=== PATIENT | female | born 1960 | race Hispanic/Latino ===

== ENCOUNTER 2017-08-13 08:21 | Inpatient (IN) | payer BC ==
[2017-08-13 09:17] LABS: #Lymphocytes 1.7 thou/uL (1.20-3.40); #Monocytes 0.9 thou/uL (0.11-0.59); #Neutrophils 10.1 thou/uL (1.40-6.50); %Basophils 0.1 % (0.0-1.0); %Eosinophils 0.1 % (0.0-10.0); %Lymphocytes 12.9 % (21.0-51.0); %Monocytes 7.4 % (0.0-10.0); Hematocrit 38.1 % (36.0-47.0); Mean Platelet Volume 6.5 fL (7.4-10.4); Red Blood Cell (RBC) Count 4.14 mill/uL (4.20-5.40); White Blood Cell (WBC) Count 12.7 thou/uL (4.8-10.8)
[2017-08-13 09:42] LABS: Bilirubin Negative (Negative); Blood, Urine Negative (Negative); Glucose, Urine (Dipstick) Negative (Negative); Ketone, Urine Negative (Negative); Nitrite Negative (Negative); Protein, Urine (Dipstick) 100 mg/dL (Neg-Trace); Urobilinogen 0.2 mg/dL (0.2-1.0)
[2017-08-13 09:43] LABS: Prothrombin Time 14.3 SEC (12.0-14.7)
[2017-08-13 09:44] LABS: PTT 35.6 SEC (22.9-36.1)
[2017-08-13] MEDS ORDERED: Gabapentin 300 MG CAP PO SCH (09:45)
[2017-08-13 09:48] LABS: Bacteria/HPF 4+ HPF (None Seen); Hyaline Casts/LPF 0-3 HYALINE CAST LPF (0-3 Hyaline); Squamous Epithelial None Seen HPF (0-3)
--- NOTE | 2017-08-13 10:00 | CT ---
HEAD CT WITHOUT CONTRAST: DATE: 08/13/17. COMPARISON: 12/09/16. HISTORY: Weakness of bilateral lower extremities, numbness and tingling of bilateral legs. TECHNIQUE: Serial axial CT imaging is obtained at 5 mm intervals from vertex through the skull base without cont rast. FINDINGS: There is an area of hypodensity within the posterior parietooccipital lobe on the left, which correla brinda with an area of prior infarction on the 12/09/16 brain MRI. There is encephalomalacia within the periventricular and deep white matter near the frontal horn of the left lateral ventricle, also corre lating with an area of prior infarction seen on 12/09/16 MRI. No intracranial hemorrhage, midline shift, or mass effect is seen.. There are numerous foci of intracranial calcification bilaterally suggesting prior cysticercosis infe ction. Imaged paranasal sinuses/mastoid air cells are well aerated. No displaced calvarial fracture. IMPRESSION: No acute findings - no intracranial hemorrhage. If there is clinical concern for acute infarction, b rain MRI is advised. Evidence of prior cysticercosis infection noted. POS: [facility]
--- NOTE | 2017-08-13 10:00 | RAD ---
ONE VIEW CHEST: COMPARISON: 02/21/17. HISTORY: Weakness. FINDINGS: Normal cardiac silhouette. The pulmonary vessels and hilum are normal. No consolidation or mass. N o pneumothorax or osseous abnormalities. IMPRESSION: No acute cardiopulmonary process. POS: [facility]
[2017-08-13 10:07] LABS: Anion Gap 12 mmol/L (10-20); BUN (Urea Nitrogen) 33 mg/dL (9.8-20.1); Bilirubin, Total 0.6 mg/dL (0.2-1.2); Calc. Creatinine Clearance 0 mL/min (70-130); Calcium 9.9 mg/dL (7.8-10.44); Carbon Dioxide 26 mmol/L (22-29); Chloride 98 mmol/L (98-107); Estimated GFR-MDRD 41
[2017-08-13 10:08] LABS: ALT (SGPT) 22 U/L (8-55); AST (SGOT) 19 U/L (5-34); Alkaline Phosphatase 77 U/L (40-150); CK (CPK) 184 U/L (29-168); Globulin 3.3 g/dL (2.4-3.5)
[2017-08-13 10:09] LABS: Troponin I 0.028 ng/mL (< 0.028)
[2017-08-13] MEDS ORDERED: hydrALAZINE 20 MG/ML VIAL SLOW IVP PRN (11:43)
[2017-08-13] MEDS ORDERED: Dextrose 5% in Water 1,000 ML IV PRN (11:57)
[2017-08-13] MEDS ORDERED: Dextrose 50% Abboject 50 ML SYRINGE SLOW IVP PRN (11:57)
[2017-08-13] MEDS ORDERED: cefTRIAXone Sodium 1 MG in Syringe 0 ML IVPB SCH (12:00)
[2017-08-13] MEDS: Sodium Chloride 0.9% 1,000 ML IV SCH ×2 (13:00→20:58)
[2017-08-13 13:39] VITALS: BMI 35.1
[2017-08-13] MEDS ORDERED: Ondansetron ODT 4 MG TAB PO PRN (13:40)
[2017-08-13] MEDS ORDERED: Ondansetron HCl/PF 4 MG/2 ML Vial IVP PRN (13:40)
[2017-08-13] MEDS ORDERED: Acetaminophen 325 MG TAB PO PRN (13:40)
[2017-08-13] MEDS: cefTRIAXone\\ROCEPHIN 1 GM, Syringe 0.4 ML in Sterile Water 9.6 ML SLOW IVP SCH (13:48)
--- NOTE | 2017-08-13 15:41 | MRI ---
BRAIN MRI WITHOUT CONTRAST 08/13/17 COMPARISON: 12/09/16. HISTORY: Evaluate for acute infarction. FINDINGS: There is no focus of restricted diffusion seen to suggest the presence of an acute infarction. There are a few foci of mildly increased signal intensity on the diffusion weighted imaging in the region o f the periventricular white matter near the anterior aspect of the body of the left lateral ventricle , in an area of infarction seen on the 12/09/16 exam, suggesting T2 shine through. In the area of prior infarction in the region of the left basal ganglia and left periventricular whit e matter there is increased T2 and FLAIR signal. Motion artifact limits detailed assessment of the axial FLAIR and T2 weighted imaging. There is a focus of encephalomalacia within the occipital lobe on the left suggesting an area of prio r infarction. There is a partially empty sella turcica present. There is mucosal thickening involving the sphenoid sinuses and ethmoid air cells. There are a few opa cified mastoid air cells on the right. Arterial flow voids at the axial level of the skull base appear grossly unremarkable on the T2 weight ed imaging, detailed assessment limited secondary to motion. Motion limited assessment of the gradient echo imaging demonstrates no obvious hemorrhage. IMPRESSION: Motion limited exam demonstrates no definite evidence for acute infarction. Chronic findings as above . POS: [facility]
[2017-08-13] MEDS: Hydroxychloroquine Sulfate 200 MG TAB PO SCH (16:46)
[2017-08-13] MEDS ORDERED: Metoprolol Tartrate 5 MG/5 ML VIAL IVP PRN (18:28)
[2017-08-13] MEDS ORDERED: Sodium Chloride 0.9% 500 ML IVPB SCH (18:30)
[2017-08-13] MEDS ORDERED: Ibuprofen 600 MG TAB PO PRN (18:45)
[2017-08-13] MEDS ORDERED: Ibuprofen 600 MG TAB PO SCH (19:00)
[2017-08-13] MEDS: Gabapentin 300 MG CAP PO SCH (20:57)
[2017-08-13] MEDS: ALPRAZolam 0.25 MG TAB PO SCH (20:57)
[2017-08-13] MEDS ORDERED: Simvastatin 20 MG TAB PO SCH (21:00)
[2017-08-13] MEDS ORDERED: Insulin Detemir 100 UNITS/ML 15 UNITS in Pre-Filled Syringe 1 EACH SC SCH (21:30)
--- NOTE | 2017-08-13 21:55 | CON ---
DATE OF CONSULTATION: 08/13/2017 REFERRING PHYSICIAN: Hospitalist service. HISTORY OF PRESENT ILLNESS: Ms. Leong is a patient of Dr. Diehl who has been followed for post-stroke movement disorder issues. She has been on Sinemet now for the last 2 months. Family reports that i t did not really seem to make a difference of anything and she was not doing any better. She started having more difficulty walking which necessitated her admission. Her lab work revealed evidence of urinary tract infection. Her MRI of the brain shows some chronic areas of ischemia involving the lef t periventricular frontal region and right midbrain mesially. No acute changes were found. The yulisa ent has been started on ceftazidime. PHYSICAL EXAMINATION: GENERAL: She is awake, but Nepalese speaking only. NEUROLOGIC: She had a little difficulty maintaining attention and following commands appropriately. She had full eye movement but seemed to have a right gaze preference. She had some rhythmic movemen t in the left upper extremity and had difficulty using it appropriately. She could move both legs ag ainst gravity in a fairly symmetric fashion. Plantar responses were downgoing. Gait was not tested. I do not see any evidence of acute stroke. The urinary tract infection may have aggravated her chron ic neurologic issues. The family is convinced the Sinemet has not been helpful, and possibly even ag gravated her condition. I will go ahead and discontinue this.
--- NOTE | 2017-08-13 22:50 | HP ---
DATE OF ADMISSION: 08/13/2017 ADMITTING PHYSICIAN: Maycol Garcia M.D. PRIMARY CARE PHYSICIAN: Viviana Corcoran M.D. CHIEF COMPLAINT: Weakness, dizziness. HISTORY OF PRESENT ILLNESS: The patient is a 57-year-old female with a history of prior CVA as well as diabetes and hypertension. The patient lives at home with her family and they noticed that she wa s unable to get out of the bed this morning. The patient is typically able to walk and she was not a ble to do that at home. They also report that she has been suffering with nausea, diarrhea, and dysu nasreen. They deny fevers, cough. The patient has had some neurological complaints and has been followe d by Dr. Diehl in the Neurology clinic. She was started on Sinemet and other medications approximatel y 1 month ago and the family feels that her motor abilities have declined since then. REVIEW OF SYSTEMS: The following complete review of systems was negative, unless otherwise mentioned in the HPI or below: Constitutional: Weight loss or gain, sense of well-being, ability to conduct usual activities, exerc ise tolerance. Skin/Breast: Rash, itching, changes in hair growth or loss, nail changes, breast lumps, tenderness, swelling, nipple discharge. Eyes: Vision, double vision, tearing, blind spots, pain. ENT/Mouth: Headaches (location, time of onset, duration, precipitating factors), vertigo, lightheade dness, injury. Vision, double vision, tearing, blind spots, pain, nose bleeding, colds, obstruction, discharge, dental difficulties, gingival bleeding, dentures, neck stiffness, pain, tenderness, masses in thyroid or other areas. Cardiovascular: Precordial pain, substernal distress, palpitations, syncope, dyspnea on exertion, or thopnea, nocturnal paroxysmal dyspnea, edema, cyanosis, hypertension, heart murmurs, varicosities, ph lebitis, claudication. Respiratory: Pain, shortness of breath, wheezing, stridor, cough, hemoptysis, fever or night sweats. Gastrointestinal: Poor appetite, dysphagia, indigestion, abdominal pain, heartburn, eructation, naus ea, vomiting, hematemesis, jaundice, constipation, or diarrhea, abnormal stools (kathleen-colored, tarry, bloody, greasy, foul smelling), flatulence, hemorrhoids, recent changes in bowel habits. Genitourinary: Urgency, frequency, dysuria, nocturia, hematuria, polyuria, oliguria, unusual (or mars nge in) color of urine, stones, hesitancy, change in size of stream, dribbling, acute retention or in continence, libido, potency. Musculoskeletal: Pain, swelling, redness or heat of muscles or joints, limitation, of motion, muscul ar weakness, atrophy, cramps. Neurologic/Psychiatric: Convulsions, paralyses, tremor, incoordination, paresthesias, difficulties w ith memory of speech, sensory or motor disturbances, or muscular coordination (ataxia, tremor), emoti onal problems, anxiety, depression, previous psychiatric care, unusual perceptions, hallucinations. Allergy/Immunologic: Skin rash, anemia, bleeding tendency, polydipsia, polyuria, intolerance to heat or cold. PAST MEDICAL HISTORY: Significant for lupus, diabetes type 2 uncontrolled, history of hypertension, right-sided CVA in 11/2016. PSYCHIATRIC HISTORY: None. SOCIAL HISTORY: Denies alcohol, drugs, or tobacco. She lives at home with her family. HOME MEDICATIONS: Zoloft 25 mg q. day, gabapentin 600 mg t.i.d., metformin 1000 mg b.i.d., lisinopri l 20 mg q. day, Lasix 20 mg q. day, prednisone 5 mg q. day, Xanax 0.25 mg b.i.d., hydroxychloroquine 200 mg b.i.d., hydralazine 100 mg t.i.d., simvastatin 20 mg q. day, Catapres 0.1 mg q. day, hydrochlo rothiazide 12.5 mg q. day, multivitamin, carbidopa/levodopa once a day, and pramipexole 0.25 mg once a day at bedtime. KNOWN DRUG ALLERGIES: AMLODIPINE causes a rash. PHYSICAL EXAMINATION: VITAL SIGNS: Pulse of 89, respirations 20, BP 132/93, temperature 98.5, satting 95% on room air. GENERAL: She is somewhat lethargic, alert, and oriented to person, place, and time. HEAD: Normocephalic, atraumatic. EYES: PERRL. Extraocular muscles are intact. No apparent nystagmus. ENT: Mouth exam normal. Mucous membranes are moist. NECK: Supple, full range of motion. No meningeal signs. RESPIRATORY: Clear to auscultation bilaterally. CARDIAC: Sinus tachycardia. ABDOMEN: Obese, nontender, nondistended. EXTREMITIES: No clubbing, cyanosis, or edema. NEUROLOGIC: No focal deficits, although there does appear to be a weakness in the bilateral lower ex tremities. LABORATORY DATA AND IMAGING: CBC shows a white count of 12.7, hemoglobin 12.2, hematocrit 38.1, plat elets 224. Coagulation studies: PT 14.3, INR 1.1, PTT 35.6. CMP shows a sodium of 132, potassium 4 .3, chloride 98, CO2 of 26, BUN 33, creatinine 1.33, glucose 143, calcium 9.9, AST 19, ALT 22, alkali ne phosphatase 77, creatinine kinase 184, CK-MB 2.1, troponin I of 0.028, albumin 3.7. Urinalysis; y ellow, cloudy, urine protein 100, urine glucose negative, urine ketones negative, urine nitrites nega tive, urine leukocyte esterase small amount, white blood cells greater than 50, and urine bacteria 4+ . Brain MRI shows no acute ischemic event. Chronic findings were present consistent with prior CVA. Brain CT, once again, no acute findings, no intracranial hemorrhage, evidence of prior cysticercosi s infection is noted. Chest x-ray shows no acute cardiopulmonary process. ASSESSMENT: 1. Urinary tract infection. 2. Acute kidney injury. 3. Leg weakness. PLAN: The patient will be admitted to stroke uriarte. She will be seen and assessed by the stroke team including Neurology. The patient will be treated empirically with cephalosporin for urinary tract i nfection. We will place her on a sliding scale insulin regimen and check Accu-Cheks q.a.c. and at be dtime. We will provide other supportive measures as needed. VTE prophylaxis will be done with compr ession stockings and SCDs.
[2017-08-14] MEDS: Sodium Chloride 0.9% 1,000 ML IV SCH ×3 (00:50→11:30)
[2017-08-14 04:03] LABS: #Basophils 0.1 thou/uL (0.0-0.2); #Lymphocytes 1.5 thou/uL (1.20-3.40); #Monocytes 0.7 thou/uL (0.11-0.59); %Basophils 0.5 % (0.0-1.0); %Eosinophils 0.2 % (0.0-10.0); %Lymphocytes 11.5 % (21.0-51.0); %Monocytes 5.3 % (0.0-10.0); Hematocrit 41.6 % (36.0-47.0); Mean Platelet Volume 6.6 fL (7.4-10.4); Red Blood Cell (RBC) Count 4.45 mill/uL (4.20-5.40); White Blood Cell (WBC) Count 13.4 thou/uL (4.8-10.8)
[2017-08-14 04:21] LABS: Anion Gap 16 mmol/L (10-20); BUN (Urea Nitrogen) 33 mg/dL (9.8-20.1); Calc. Creatinine Clearance 93 mL/min (70-130); Calcium 9.8 mg/dL (7.8-10.44); Carbon Dioxide 20 mmol/L (22-29); Chloride 104 mmol/L (98-107); Estimated GFR-MDRD 59
--- NOTE | 2017-08-14 08:37 | RAD ---
PORTABLE CHEST: HISTORY: Chest pain for 5 hours. COMPARISON: Prior day's study. FINDINGS: Heart size is borderline. There are atherosclerotic changes of the aorta. The lungs are clear of in filtrates. IMPRESSION: Borderline heart size. POS: [facility]
--- NOTE | 2017-08-14 08:43 | CT ---
FINAL REPORT EMERGENCY AFTER HOURS CT ANGIO CHEST PERFORMED WITH INTRAVENOUS CONTRAST ENHANCEMENT WITH 3D RECONSTR UCTIONS: Date: 08/14/17 HISTORY: Shortness of breath. FINDINGS: The lungs are clear of any focal infiltrative process. No pulmonary nodules are identified. No pleura l effusions. The thoracic aorta is normal in caliber. There is fair pulmonary artery opacification. I see no signs of central emboli. Small peripheral embo li cannot be definitely excluded on the basis of this exam. Visualized liver parenchyma shows no focal findings. Small hiatal hernia is present. IMPRESSION: No CT evidence for pulmonary embolus. POS: [facility]
[2017-08-14] MEDS: predniSONE 20 MG TAB PO SCH (08:58)
[2017-08-14] MEDS: Hydroxychloroquine Sulfate 200 MG TAB PO SCH ×2 (08:58→17:20)
[2017-08-14] MEDS: Gabapentin 300 MG CAP PO SCH ×3 (08:58→21:11)
[2017-08-14] MEDS: cloNIDine 0.1 MG TAB PO SCH (08:59)
[2017-08-14] MEDS: ALPRAZolam 0.25 MG TAB PO SCH ×2 (09:00→21:11)
--- NOTE | 2017-08-14 09:46 | PQF ---
DATE: 08-14-17 ATTN: DR. SHADY EASON Please exercise your independent, professional judgment in responding to the clarification form. Clinical indicators are provided on the bottom of this form for your review Please check appropriate box(s): [ ] Hemiplegia d/t CVA [ ] Paraplegia [ ] Weakness (please specify anatomical area) d/t CVA Specify: [ ] Non dominant side [ ] Dominant side [ x ] Other diagnosis weakness due to UTI and sepsis. No CVA, ruled out ___ [ ] Unable to determine In addition, please specify: Present on Admission (POA): [ ] Yes [ ] No [ ] Unable to determine CLINICAL INDICATORS - SIGNS / SYMPTOMS / LABS ER DOCUMENTATION: HX OF CVA WITH L SIDED DEFICIT H&P: R SIDED CVA IN , NO FOCAL DEFICITS, ALTHOUGH THERE APPEARS TO BE A WEAKNESS IN THE BILATERAL LOWER EXTREMITIES RISK FACTORS: ER DOCUMENTATION: HX OF CVA WITH L SIDED DEFICIT TREATMENT: CONSULT DR. HUANG-NEUROLOGY NURSES ASSESSMENT 08-13-17: WEAK, STANDBY ASSISTANCE, 1 PERSON ASSIST (This form is maintained as a part of the permanent medical record) 2014 [employer]. All Rights Reserved [email or web address] Office: [phone] [facility] CENTERGustabo
[2017-08-14] MEDS: Insulin Regular 300 UNITS/3 ML VIAL SC PRN ×2 (11:28→17:18)
--- NOTE | 2017-08-14 11:47 | PDOC.PN ---
- Subjective Encounter Start Date: 08/14/17 Encounter Start Time: 11:00 Pt seen and examined on rounds. Chart reviewed in its entirety. This is my first visit with this patient. Febrile to 101.0 this morning, down form tmax of 103.1 prior to admit/. No sweats or chills,no rigors. Pt up woth PT earlier, awaiting their notes. No N/ C/D/C. no CP or SOB. feels weak. Sleeping soundly, family at bedside 10 point RSO performed and neg for all systems except as above - Objective Resuscitation Status: FULL MAR Reviewed: Yes Vital Signs & Weight: Vital Signs (12 hours) Temp Pulse Resp BP BP Pulse Ox 08/14/17 11:20 98.3 F 63 18 125/69 97 08/14/17 08:59 128/71 08/14/17 08:50 101 F H 93 20 97 08/14/17 07:20 101 F H 93 20 146/70 H 97 08/14/17 05:33 104 H 179/79 H 08/14/17 04:00 96.8 F L 99 20 191/89 H 93 L 08/14/17 03:57 110 H 20 97 08/14/17 03:31 91 L 08/14/17 03:23 118 H 24 H 208/108 H 91 L 08/14/17 00:00 97.3 F L 63 16 120/72 97 I&O: 08/13/17 08/14/17 08/15/17 06:59 06:59 06:59 Intake Total 2240 Balance 2240 Result Diagrams: 08/14/17 03:54 08/14/17 03:54 Additional Labs: Accuchecks 08/14/17 08/14/17 08/13/17 11:04 06:03 21:11 POC Glucose 315 H 154 H 170 H 08/13/17 08/13/17 18:38 16:34 POC Glucose 133 H 154 H Radiology Reviewed by me: Yes EKG Reviewed by me: Yes Phys Exam - Physical Examination Constitutional: NAD HEENT: PERRLA, moist MMs, sclera anicteric, oral pharynx no lesions Neck: no nodes, no JVD, supple, full ROM Respiratory: no wheezing, no rales, no rhonchi, clear to auscultation bilateral Cardiovascular: RRR, no significant murmur, no rub Gastrointestinal: soft, non-tender, no distention, positive bowel sounds Musculoskeletal: no edema, pulses present Neurological: non-focal, normal sensation, moves all 4 limbs 4/5 strength globally Lymphatic: no nodes Psychiatric: A&O x 3 Skin: no rash, normal turgor, cap refill <2 seconds Dx/Plan (1) UTI (urinary tract infection) with pyuria Code(s): N39.0 - URINARY TRACT INFECTION, SITE NOT SPECIFIED Status: Acute Comment: UCx pending/. followup on results, [facility] with IV abx, sepsis reolving. strength better, MS normal (2) Sepsis Code(s): A41.9 - SEPSIS, UNSPECIFIED ORGANISM Status: Acute Qualifiers: Sepsis type: sepsis due to unspecified organism Qualified Code(s): A41.9 - Sepsis, unspecified organism Comment: resolving, [facility] (3) DM type 2 (diabetes mellitus, type 2) Status: Chronic Qualifiers: Diabetes mellitus complication status: with neurologic complications Diabetes mellitus complication detail: with unspecified neuropathy Diabetes mellitus long-term insulin use: with terminal makeup operator use Comment: resuming levemir. SSi for correction. Metformin on hold (4) H/O: CVA (cerebrovascular accident) Code(s): Z86.73 - PRSNL HX OF TIA (TIA), AND CEREB INFRC W/O RESID DEFICITS Status: Chronic (5) HTN (hypertension) Code(s): I10 - ESSENTIAL (PRIMARY) HYPERTENSION Status: Chronic Qualifiers: Hypertension type: essential hypertension Qualified Code(s): I10 - Essential (primary) hypertension Comment: restart hydralazine. holding licinopril and HCTZ due to sepsis (6) SLE (systemic lupus erythematosus) Code(s): M32.9 - SYSTEMIC LUPUS ERYTHEMATOSUS, UNSPECIFIED Status: Chronic Qualifiers: Systemic lupus erythematosus type: unspecified Systemic lupus erythematosus organ involvement: unspecified Qualified Code(s): M32.9 - Systemic lupus erythematosus, unspecified - Plan cont current plan of care, plan discussed w/ family, continue antibiotics, PT/OT , out of bed/ambulate * .
[2017-08-14] MEDS: Pramipexole Di-HCl 0.25 MG TAB PO SCH ×2 (15:30→21:14)
[2017-08-14] MEDS: hydrALAZINE 25 MG TAB PO SCH ×2 (15:30→21:11)
[2017-08-14] MEDS: cefTRIAXone\\ROCEPHIN 1 GM, Syringe 0.4 ML in Sterile Water 9.6 ML SLOW IVP SCH (15:34)
[2017-08-14] MEDS ORDERED: ISOVUE-370 76%-LOCM 1 ML ONE (17:20)
[2017-08-14] MEDS ORDERED: Insulin Detemir 100 UNITS/ML 15 UNITS in Pre-Filled Syringe 1 EACH SC SCH (21:00)
[2017-08-14] MEDS ORDERED: Non-Formulary Item 1 EACH (Levemir Flexpen [Levemir Flexpen] 15 UNIT) SC SCH (21:00)
[2017-08-14] MEDS: Insulin Detemir 100 UNITS/ML 15 UNITS in Pre-Filled Syringe SC SCH (21:16)
[2017-08-15] MEDS: Sodium Chloride 0.9% 1,000 ML IV SCH ×3 (03:34→16:05)
[2017-08-15 05:17] LABS: #Lymphocytes 0.9 thou/uL (1.20-3.40); #Monocytes 0.6 thou/uL (0.11-0.59); #Neutrophils 5.8 thou/uL (1.40-6.50); %Basophils 0.1 % (0.0-1.0); %Eosinophils 0.4 % (0.0-10.0); %Lymphocytes 12.8 % (21.0-51.0); Hematocrit 31.3 % (36.0-47.0); Mean Platelet Volume 6.8 fL (7.4-10.4); Red Blood Cell (RBC) Count 3.38 mill/uL (4.20-5.40); White Blood Cell (WBC) Count 7.4 thou/uL (4.8-10.8)
[2017-08-15 05:25] LABS: Anion Gap 10 mmol/L (10-20); BUN (Urea Nitrogen) 21 mg/dL (9.8-20.1); Calc. Creatinine Clearance 145 mL/min (70-130); Calcium 8.9 mg/dL (7.8-10.44); Carbon Dioxide 23 mmol/L (22-29); Chloride 109 mmol/L (98-107); Estimated GFR-MDRD Greater than 90
[2017-08-15] MEDS: Primidone 50 MG TAB PO SCH (09:07)
[2017-08-15] MEDS: Pramipexole Di-HCl 0.25 MG TAB PO SCH ×3 (09:08→22:02)
[2017-08-15] MEDS: predniSONE 20 MG TAB PO SCH (09:08)
[2017-08-15] MEDS: cloNIDine 0.1 MG TAB PO SCH (09:08)
[2017-08-15] MEDS: ALPRAZolam 0.25 MG TAB PO SCH ×2 (09:08→22:01)
[2017-08-15] MEDS: Hydroxychloroquine Sulfate 200 MG TAB PO SCH ×2 (09:08→16:06)
[2017-08-15] MEDS: Gabapentin 300 MG CAP PO SCH ×3 (09:09→22:01)
[2017-08-15] MEDS: hydrALAZINE 25 MG TAB PO SCH ×3 (09:09→22:01)
[2017-08-15] MEDS: cefTRIAXone\\ROCEPHIN 1 GM, Syringe 0.4 ML in Sterile Water 9.6 ML SLOW IVP SCH (13:23)
[2017-08-15 15:37] LABS: Bilirubin Negative (Negative); Blood, Urine Negative (Negative); Glucose, Urine (Dipstick) 250 mg/dL (Negative); Ketone, Urine Negative (Negative); Nitrite Negative (Negative); Protein, Urine (Dipstick) Trace mg/dL (Neg-Trace)
[2017-08-15 15:40] LABS: Bacteria/HPF None Seen HPF (None Seen); Hyaline Casts/LPF 0-3 HYALINE CAST LPF (0-3 Hyaline); Squamous Epithelial 0-3 HPF (0-3)
--- NOTE | 2017-08-15 16:23 | PDOC.PN ---
- Subjective Encounter Start Date: 08/15/17 Encounter Start Time: 16:21 Patient seen and examined. No new complaints. No overnight events - Objective MAR Reviewed: Yes Vital Signs & Weight: Vital Signs (12 hours) Temp Pulse Pulse Pulse Resp BP BP 08/15/17 16:06 70 186/91 H 08/15/17 15:36 99.0 F 70 16 08/15/17 11:32 99.7 F H 88 16 08/15/17 09:09 89 186/81 H 08/15/17 09:08 186/81 H 08/15/17 08:21 113 H 101 H 167/77 H 08/15/17 08:00 98.9 F 89 20 08/15/17 07:48 98.9 F 89 20 08/15/17 05:37 98.0 F 72 18 BP BP Pulse Ox 08/15/17 16:06 08/15/17 15:36 186/91 H 97 08/15/17 11:32 148/63 H 97 08/15/17 09:09 08/15/17 09:08 08/15/17 08:21 172/70 H 08/15/17 08:00 96 08/15/17 07:48 186/81 H 96 08/15/17 05:37 154/68 H 99 I&O: 08/14/17 08/15/17 08/16/17 06:59 06:59 06:59 Intake Total 2240 836 Balance 2240 836 Result Diagrams: 08/15/17 04:44 08/15/17 04:44 Additional Labs: Accuchecks 08/15/17 08/15/17 08/14/17 10:45 04:44 21:08 POC Glucose 219 H 74 113 H 08/14/17 17:04 POC Glucose 211 H Phys Exam - Physical Examination Constitutional: NAD HEENT: PERRLA Neck: no JVD Respiratory: no rales Cardiovascular: no significant murmur Gastrointestinal: non-tender Musculoskeletal: pulses present Neurological: normal sensation letft leg weaker than left Psychiatric: A&O x 3 Dx/Plan (1) UTI (urinary tract infection) with pyuria Code(s): N39.0 - URINARY TRACT INFECTION, SITE NOT SPECIFIED Status: Acute Comment: UCx pending/. followup on results, [facility] with IV abx, sepsis reolving. strength better, MS normal (2) DM type 2 (diabetes mellitus, type 2) Status: Chronic Qualifiers: Diabetes mellitus complication status: with neurologic complications Diabetes mellitus complication detail: with unspecified neuropathy Diabetes mellitus marine oil terminal superintendent insulin use: with marine oil terminal superintendent use Comment: resuming levemir. SSi for correction. Metformin on hold (3) H/O: CVA (cerebrovascular accident) Code(s): Z86.73 - PRSNL HX OF TIA (TIA), AND CEREB INFRC W/O RESID DEFICITS Status: Chronic (4) HTN (hypertension) Code(s): I10 - ESSENTIAL (PRIMARY) HYPERTENSION Status: Chronic Qualifiers: Hypertension type: essential hypertension Qualified Code(s): I10 - Essential (primary) hypertension Comment: restart hydralazine. holding licinopril and HCTZ due to sepsis (5) SLE (systemic lupus erythematosus) Code(s): M32.9 - SYSTEMIC LUPUS ERYTHEMATOSUS, UNSPECIFIED Status: Chronic Qualifiers: Systemic lupus erythematosus type: unspecified Systemic lupus erythematosus organ involvement: unspecified Qualified Code(s): M32.9 - Systemic lupus erythematosus, unspecified - Plan * .
[2017-08-15] MEDS: Insulin Detemir 100 UNITS/ML 15 UNITS in Pre-Filled Syringe SC SCH (22:02)
[2017-08-16] MEDS: Sodium Chloride 0.9% 1,000 ML IV SCH ×2 (01:52→01:53)
[2017-08-16 05:57] LABS: Anion Gap 9 mmol/L (10-20); BUN (Urea Nitrogen) 14 mg/dL (9.8-20.1); Calc. Creatinine Clearance 156 mL/min (70-130); Calcium 8.8 mg/dL (7.8-10.44); Carbon Dioxide 24 mmol/L (22-29); Chloride 109 mmol/L (98-107); Estimated GFR-MDRD Greater than 90; Magnesium 1.5 mg/dL (1.6-2.6)
[2017-08-16] MEDS: Primidone 50 MG TAB PO SCH (09:13)
[2017-08-16] MEDS: Hydroxychloroquine Sulfate 200 MG TAB PO SCH ×2 (09:13→17:12)
[2017-08-16] MEDS: cloNIDine 0.1 MG TAB PO SCH (09:13)
[2017-08-16] MEDS: Pramipexole Di-HCl 0.25 MG TAB PO SCH ×3 (09:13→21:35)
[2017-08-16] MEDS: hydrALAZINE 25 MG TAB PO SCH ×3 (09:13→21:34)
[2017-08-16] MEDS: ALPRAZolam 0.25 MG TAB PO SCH ×2 (09:14→21:34)
[2017-08-16] MEDS: Gabapentin 300 MG CAP PO SCH ×3 (09:14→21:34)
[2017-08-16] MEDS: predniSONE 20 MG TAB PO SCH (09:14)
[2017-08-16] MEDS: Insulin Regular 300 UNITS/3 ML VIAL SC PRN ×2 (11:18→17:12)
[2017-08-16] MEDS: cefTRIAXone\\ROCEPHIN 1 GM, Syringe 0.4 ML in Sterile Water 9.6 ML SLOW IVP SCH (12:34)
--- NOTE | 2017-08-16 16:05 | PDOC.PN ---
- Subjective Encounter Start Date: 08/16/17 Encounter Start Time: 16:03 Patient seen and examined. No new complaints. No overnight events - Objective MAR Reviewed: Yes Vital Signs & Weight: Vital Signs (12 hours) Temp Pulse Resp BP Pulse Ox 08/16/17 12:00 98.2 F 78 18 139/65 97 08/16/17 08:00 98.6 F 84 20 181/91 H 99 08/16/17 07:35 98.6 F 84 20 Weight Weight 224 lb 6.4 oz I&O: 08/15/17 08/16/17 08/17/17 06:59 06:59 06:59 Intake Total 836 3060 Output Total 450 Balance 836 2610 Result Diagrams: 08/15/17 04:44 08/16/17 05:23 Additional Labs: Accuchecks 08/16/17 08/16/17 08/15/17 10:53 05:50 21:14 POC Glucose 258 H 88 183 H 08/15/17 16:47 POC Glucose 246 H Phys Exam - Physical Examination Constitutional: NAD HEENT: PERRLA Neck: no JVD Respiratory: no wheezing Cardiovascular: no significant murmur Gastrointestinal: no distention Musculoskeletal: pulses present Neurological: moves all 4 limbs Psychiatric: A&O x 3 Dx/Plan (1) UTI (urinary tract infection) with pyuria Code(s): N39.0 - URINARY TRACT INFECTION, SITE NOT SPECIFIED Status: Acute Comment: UCx pending/. followup on results, [facility]CM with IV abx, sepsis reolving. strength better, MS normal (2) DM type 2 (diabetes mellitus, type 2) Status: Chronic Qualifiers: Diabetes mellitus complication status: with neurologic complications Diabetes mellitus complication detail: with unspecified neuropathy Diabetes mellitus mcfp insulin use: with mcfp use Comment: resuming levemir. SSi for correction. Metformin on hold (3) H/O: CVA (cerebrovascular accident) Code(s): Z86.73 - PRSNL HX OF TIA (TIA), AND CEREB INFRC W/O RESID DEFICITS Status: Chronic (4) HTN (hypertension) Code(s): I10 - ESSENTIAL (PRIMARY) HYPERTENSION Status: Chronic Qualifiers: Hypertension type: essential hypertension Qualified Code(s): I10 - Essential (primary) hypertension Comment: restart hydralazine. holding licinopril and HCTZ due to sepsis (5) SLE (systemic lupus erythematosus) Code(s): M32.9 - SYSTEMIC LUPUS ERYTHEMATOSUS, UNSPECIFIED Status: Chronic Qualifiers: Systemic lupus erythematosus type: unspecified Systemic lupus erythematosus organ involvement: unspecified Qualified Code(s): M32.9 - Systemic lupus erythematosus, unspecified - Plan * continue phycial therapy * f/u culture * case mx for hh * possible d/c in am
[2017-08-16] MEDS ORDERED: Magnesium Oxide 400 MG TAB PO SCH (21:00)
[2017-08-16] MEDS: Insulin Detemir 100 UNITS/ML 15 UNITS in Pre-Filled Syringe SC SCH (21:35)
[2017-08-16] MEDS: Magnesium Oxide 400 MG TAB PO SCH (21:35)
[2017-08-17] MEDS: Hydroxychloroquine Sulfate 200 MG TAB PO SCH (08:46)
[2017-08-17] MEDS: hydrALAZINE 25 MG TAB PO SCH (08:46)
[2017-08-17] MEDS: ALPRAZolam 0.25 MG TAB PO SCH (08:46)
[2017-08-17] MEDS: Magnesium Oxide 400 MG TAB PO SCH (08:47)
[2017-08-17] MEDS: Pramipexole Di-HCl 0.25 MG TAB PO SCH (08:47)
[2017-08-17] MEDS: cloNIDine 0.1 MG TAB PO SCH (08:47)
[2017-08-17] MEDS: Primidone 50 MG TAB PO SCH (08:47)
[2017-08-17] MEDS: Gabapentin 300 MG CAP PO SCH (08:47)
[2017-08-17] MEDS: predniSONE 20 MG TAB PO SCH (08:47)
[2017-08-17] MEDS: Insulin Regular 300 UNITS/3 ML VIAL SC PRN (10:53)
[2017-08-17 11:43] VITALS: BP 118/62; TEMP 98.6
--- NOTE | 2017-08-17 16:34 | DIS ---
DATE OF ADMISSION: 08/13/2017 DATE OF DISCHARGE: 08/17/2017 DISCHARGE DIAGNOSES: 1. Pyelonephritis of the right kidney. 2. Sepsis secondary to #1. 3. Urinary tract infection, pyelonephritis, present on admission. 4. 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 5. History of cerebrovascular accident and cerebrovascular disease. 6. Essential hypertension. 7. Systemic lupus erythematosus. CONSULTATIONS: Dr. Dominguez Vital with Neurology, 08/13/2017. Recommend discontinuation of her Sineme t. PROCEDURES: None. HISTORY AND PHYSICAL: Ms. Leong is a 57-year-old female with history of lupus, periph eral neuropathy and movement issues followed by Neurology regularly. The patient was brought to the emergency department for evaluation, 08/13/2017 for fever, weakness, a nd dizziness. She was found to have a urinary tract infection, acute kidney injury with increased cr eatinine and was admitted to our service. HOSPITAL COURSE: The patient was seen and examined by Dr. Maycol Garcia. The patient was placed on s troke uriarte to make sure this was not the cerebrovascular accident and Neurology was consulted due to her movement issues. The patient was started with Rocephin for her urinary tract infection as the ur inalysis certainly suggested acute urinary tract infection. CT scan was done that showed patchy enhancement of the lower pole of the right kidney consistent with early pyelonephritis. She was subsequently continued on her antibiotics. Overnight 08/13/2017-08/14/2017, she did well. She had a CT thorax angiogram to rule out PE that was negative. Chest x-ray was unremarkable. I took over the case on 08/14/2017, the patient was monitored, was more awake and alert. She is feel ing better and per Neurology, a new stroke was ruled out. He did recommend stopping her Sinemet as i t seemed to be making her worse and not helping her movement symptoms. By 08/15/2017, the patient remained stable, and afebrile. She had no further fever since morning of 08/14/2017. She was continued on Rocephin and physical therapy was consulted. They felt she would b enefit from home physical therapy versus SNF. On 08/15/2017-08/16/2017, the patient slowly improved. By 08/17/2017, she was afebrile, labs were normal, she had gotten with PT and was appropriate back to her normal baseline mental status. After discussion with the daughter, the patient discharged home with outpatient follow up on p.o. Levaquin. On review, the patient had a urinalysis done 08/13/2017, that showed reactive urine, but no culture w as sent. On 08/15/2017, a repeat urinalysis was sent that showed less reactive urine and a culture w as negative at that point. It was reason that the urine organism was sensitive to Rocephin coverage. She was transitioned to p.o. Levaquin with IV equivalents and was discharged home. PHYSICAL EXAMINATION: The patient was seen and examined on the day of discharge. Discharge plan and disposition was discussed with the patient and her daughter [id number] at the [facility]. DISCHARGE MEDICATIONS: 1. Levofloxacin 500 mg daily for 10 more days. Prescription was sent. 2. Xanax 0.25 mg p.o. b.i.d. to resume. 3. Clonidine 0.1 mg p.o. daily. 4. Lasix 20 mg daily. 5. Gabapentin 300 mg p.o. t.i.d. 6. Hydralazine 100 mg p.o. t.i.d. 7. Hydrochlorothiazide 12.5 mg daily. 8. Plaquenil 200 mg p.o. b.i.d. 9. Levemir 15 units subQ at bedtime. 10. Lisinopril 20 mg daily. 11. Metformin 1000 mg p.o. b.i.d. with meals. 12. Multivitamin daily. 13. Pramipexole dihydrochloride 0.25 mg p.o. t.i.d. 14. Prednisone 50 mg daily. 15. Mysoline 100 mg daily. 16. Sertraline 50 mg daily. 17. Zocor 20 mg p.o. at bedtime. 18. She was instructed to stop her Sinemet. FOLLOWUP APPOINTMENTS: 1. Primary care physician within a week. 2. Neurology in 1-2 weeks. DISCHARGE ACTIVITY: Per neurologic and cardiopulmonary limits. DISCHARGE DIET: Diabetic heart healthy. DISCHARGE INSTRUCTIONS: She is to keep followup appointments. Return to emergency department for wo rsening problems or being unable to get with the primary doctor. DISPOSITION: The patient will be discharged home with home health care for PT and OT.
== END 2017-08-17 13:47 | disposition home or self-care (01) | DRG 872 ==
LOC: ERS 08:21 → 2SE 10:50
PROVIDERS: ADMIT Internal Medicine Addiction Medicine; ATTEND Internal Medicine Addiction Medicine
DX: A41.9 Sepsis, unspecified organism (principal); N17.9 Acute kidney failure, unspecified; M32.9 Systemic lupus erythematosus, unspecified; I69.354 Hemiplegia and hemiparesis following cerebral infarction affecting left non-dominant side; N10 Acute pyelonephritis; E11.9 Type 2 diabetes mellitus without complications; I10 Essential (primary) hypertension
CPT/HCPCS: 36415; 36416; 70450; 70551; 71010; 71275; 80048; 80053; 81001; 81003; 81015; 82550; 82553; 83735; 84484; 85025; 85379; 85610; 85730; 87040; 87086; 93005; 94640; A4216; A4353; G8978-GP-CK; G8979-GP-CI; G8987-GO-CK; G8988-GO-CJ; G8996-GN-CH; G8997-GN-CH; J0696; J1815; J2920; J7050; J7506; J7620

== ENCOUNTER 2017-10-19 17:48 | Emergency (ER) | payer BC, OTHER, SELFPAY ==
--- NOTE | 2017-10-19 18:40 | RAD ---
PORTABLE CHEST: Date: 10-19-17 Provided Clinical History: Left arm pain. FINDINGS: Comparison 08-14-17. Cardiac and mediastinal silhouette is within normal limits. No focal consolidati on, pleural fluid, or pneumothorax apparent. IMPRESSION: No evidence for an acute cardiopulmonary process. POS: [facility]
[2017-10-19 18:42] LABS: #Lymphocytes 2.3 thou/uL (1.20-3.40); #Monocytes 0.5 thou/uL (0.11-0.59); #Neutrophils 6.2 thou/uL (1.40-6.50); %Basophils 0.2 % (0.0-1.0); %Eosinophils 0.3 % (0.0-10.0); %Lymphocytes 25.2 % (21.0-51.0); %Neutrophils 69.2 % (42.0-75.0); Hemoglobin 13.2 g/dL (12.0-16.0); Mean Corpuscular HGB CONC 32.4 g/dL (32.0-36.0); Mean Corpuscular Hemoglobin 29.5 pg (27.0-31.0); Mean Platelet Volume 7.4 fL (7.4-10.4); Platelet Count 205 thou/uL (130-400); Red Blood Cell (RBC) Count 4.48 mill/uL (4.20-5.40)
[2017-10-19] MEDS ORDERED: Morphine 2 MG/ML SYRINGE ONE ×2 (18:47→21:13)
[2017-10-19 19:02] LABS: ALT (SGPT) 22 U/L (8-55); AST (SGOT) 23 U/L (5-34); Albumin 4.4 g/dL (3.5-5.0); Alkaline Phosphatase 85 U/L (40-150); Anion Gap 17 mmol/L (10-20); BUN (Urea Nitrogen) 21 mg/dL (9.8-20.1); Bilirubin, Total 0.3 mg/dL (0.2-1.2); CK (CPK) 150 U/L (29-168); Calc. Creatinine Clearance 0 mL/min (70-130); Calcium 10.7 mg/dL (7.8-10.44); Carbon Dioxide 24 mmol/L (22-29); Chloride 96 mmol/L (98-107); Estimated GFR-MDRD 74; Globulin 3.2 g/dL (2.4-3.5); Glucose 139 mg/dL (70-105); Magnesium 1.8 mg/dL (1.6-2.6); Potassium 3.9 mmol/L (3.5-5.1); Protein, Total 7.6 g/dL (6.0-8.3); Sodium 133 mmol/L (136-145)
[2017-10-19 19:06] LABS: CKMB 1.8 ng/mL (0-6.6); Troponin I Less than 0.010 ng/mL (< 0.028)
[2017-10-19] MEDS ORDERED: METHOCARBAMOL IVPB SCH (19:45)
[2017-10-19] MEDS ORDERED: SODIUM CHLORIDE 0.9% IVPB SCH (19:45)
[2017-10-19 20:27] LABS: Bilirubin Negative (Negative); Blood, Urine Negative (Negative); Clarity CLEAR (Clear); Glucose, Urine (Dipstick) Negative (Negative); Leukocyte Trace (Negative); Nitrite Negative (Negative); Protein, Urine (Dipstick) Negative (Neg-Trace); Urobilinogen 0.2 mg/dL (0.2-1.0)
[2017-10-19 20:34] LABS: Bacteria/HPF None Seen HPF (None Seen); Hyaline Casts/LPF 0-3 HYALINE CAST LPF (0-3 Hyaline); RBC/HPF 0-3 HPF (0-3); Squamous Epithelial None Seen HPF (0-3); WBC/HPF 0-3 HPF (0-3)
[2017-10-19] MEDS ORDERED: Gabapentin 100 MG CAP PO SCH (21:15)
== END 2017-10-19 22:18 | disposition home or self-care (01) ==
LOC: ERS 17:48
DX: M62.422 Contracture of muscle, left upper arm (principal); I69.898 Other sequelae of other cerebrovascular disease; I69.854 Hemiplegia and hemiparesis following other cerebrovascular disease affecting left non-dominant side; E11.9 Type 2 diabetes mellitus without complications; I10 Essential (primary) hypertension; Z79.899 Other long term (current) drug therapy; Z79.84 Long term (current) use of oral hypoglycemic drugs
CPT/HCPCS: 71045; 80053; 81003; 81015; 82550; 82553; 83735; 84484; 85025; 93005; 96365; 96375; 96376; J2270; J2800; J7050

== ENCOUNTER 2018-10-19 14:47 | Outpatient (CLI) | payer OTHER ==
--- NOTE | 2018-10-19 15:29 | RAD ---
RIGHT SHOULDER THREE VIEWS: History: Shoulder pain. FINDINGS: There are mild arthritic changes of the AC and glenohumeral joints. There is no fracture or dislocati on. IMPRESSION: Mild arthritic changes of the shoulder joints. POS: [facility]
--- NOTE | 2018-10-19 15:31 | RAD ---
RIGHT WRIST THREE VIEWS: History: Wrist pain. FINDINGS: Bones appear demineralized. Minimal osteoarthritic type change is seen. No bony erosive change. There is suggestion of perhaps some subchondral cystic change involving the lunate. The lunate appears min imally sclerotic but this may just be related to the positioning. I do not see any definitive evidenc e for an avascular necrosis. IMPRESSION: Diffuse bony demineralization. No definite acute changes. POS: [facility]
== END 2018-10-19 14:48 | disposition home or self-care (01) ==
LOC: BICRAD 14:47
PROVIDERS: ATTEND Family Medicine
DX: M75.01 Adhesive capsulitis of right shoulder (principal); M19.031 Primary osteoarthritis, right wrist; M81.0 Age-related osteoporosis without current pathological fracture; M19.011 Primary osteoarthritis, right shoulder

== ENCOUNTER 2018-12-14 11:37 | Outpatient (CLI) | payer OTHER ==
--- NOTE | 2018-12-20 13:21 | MMO ---
Bilateral MAMMO Bilat Screen [facility]. CLINICAL HISTORY: Patient is 58 years old and is seen for screening. The patient has no family history of breast cancer. The patient has no personal history of cancer. The patient has a history of right Excisional Biopsy in September, - benign. VIEWS: The views performed were: bilateral craniocaudal with tomosynthesis; bilateral mediolateral oblique with tomosynthesis; and right exaggerated craniocaudal. FILMS COMPARED: The present examination has been compared to prior imaging studies performed at [facility] on 02/06/2004, 03/04/2006, 06/14/2007, 08/13/2009, 09/02/2010, 09/05/2010, 09/19/2011 and 09/22/2012, and at [facility] on 07/30/2004. MAMMOGRAM FINDINGS: There are scattered fibroglandular densities. Finding 1: There are vascular calcifications seen in both breasts. Finding 2: There are stable nodules seen in the axillary tail of both breasts. There are no suspicious masses, calcifications or areas of architectural distortion. IMPRESSION: THERE IS NO MAMMOGRAPHIC EVIDENCE OF MALIGNANCY. A ROUTINE FOLLOW-UP MAMMOGRAM IN 1 YEAR IS RECOMMENDED. THE RESULTS OF THIS EXAM WERE SENT TO THE PATIENT. ACR BI-RADS Category 2 - Benign finding MAMMOGRAPHY NOTE: 1. A negative mammogram report should not delay a biopsy if a dominant of clinically suspicious mass is present. 2. Approximately 10% to 15% of breast cancers are not detected by mammography. 3. Adenosis and dense breasts may obscure an underlying neoplasm.
== END 2018-12-14 11:38 | disposition home or self-care (01) ==
LOC: BICMAMMO 11:37
PROVIDERS: ATTEND Family Medicine
DX: Z12.31 Encounter for screening mammogram for malignant neoplasm of breast (principal)
CPT/HCPCS: 77063; 77067